=== PATIENT | male | born 1995 | race Two or more races ===

== ENCOUNTER 2023-06-02 11:10 | Emergency (ER) | payer OTHER, MEDICAID ==
[~2023-06-02] VITALS: Ht 185.4 cm; Wt 104.8 kg
[2023-06-02] MEDS ORDERED: TETANUS-DIPTH-ACEL PERTUSSIS 0.5ML SYR Tdap IM ONE (11:45)
[2023-06-02 13:24] VITALS: BP 126/76; PULSE 82; RESP 15; TEMP 98; O2SAT 100
== END 2023-06-02 13:38 | disposition home or self-care (01) ==
LOC: ER 11:10
DX: S01.81XA Laceration without foreign body of other part of head, initial encounter (principal); R41.0 Disorientation, unspecified; W20.8XXA Other cause of strike by thrown, projected or falling object, initial encounter; Y93.89 Activity, other specified; Y92.89 Other specified places as the place of occurrence of the external cause; Y99.8 Other external cause status
CPT/HCPCS: 70450; 90471; 90715

== ENCOUNTER 2025-04-24 18:27 | Emergency (ER) | payer OTHER, MEDICAID ==
[~2025-04-24] VITALS: Ht 185.4 cm; Wt 95.8 kg
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
[2025-04-24 20:36] VITALS: BP 123/82; PULSE 52; RESP 17; TEMP 98; O2SAT 100
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
[2025-04-24] MEDS ORDERED: IBUP-1456 PO (22:50)
--- NOTE | 2025-04-24 23:35 | DVH ---
CLINICAL INDICATION: TENDERNESS IN SNUFF BOX TECHNIQUE: 4 views XY R HAND 3 VIEW XRAY Comparison: None FINDINGS: No acute fracture or joint malalignment. Normal osseous mineralization. No significant degenerative change. Unremarkable soft tissues. IMPRESSION: 1. No acute finding of the right hand.
== END 2025-04-24 22:52 | disposition home or self-care (01) ==
LOC: ER 18:29
DX: S60.221A Contusion of right hand, initial encounter (principal); Z79.899 Other long term (current) drug therapy; W22.09XA Striking against other stationary object, initial encounter; Y93.89 Activity, other specified; Y92.89 Other specified places as the place of occurrence of the external cause; Y99.8 Other external cause status
CPT/HCPCS: 73110; 73130

== ENCOUNTER 2025-05-05 15:08 | Emergency (ER) | payer MEDICAID, OTHER ==
[~2025-05-05] VITALS: Ht 185.4 cm; Wt 94.9 kg
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
[2025-05-05 15:42] VITALS: BP 126/57; PULSE 58; RESP 15; TEMP 97.8; O2SAT 98
== END 2025-05-05 15:43 | disposition home or self-care (01) ==
LOC: ER 15:08
DX: S63.91XA Sprain of unspecified part of right wrist and hand, initial encounter (principal); X58.XXXA Exposure to other specified factors, initial encounter; Y93.89 Activity, other specified; Y92.89 Other specified places as the place of occurrence of the external cause; Y99.8 Other external cause status